=== PATIENT | male | born 1980 | race Caucasian/White ===

== ENCOUNTER 2016-10-23 16:34 | Emergency (ER) | payer SELFPAY ==
[2016-10-23] MEDS ORDERED: HYDR1CRE TOPICAL (17:14)
[2016-10-23] MEDS ORDERED: PERM5CRE TOPICAL (17:14)
[2016-10-23] MEDS ORDERED: DEXAMETHASONE SOD PHOS 4 MG/ML VIAL IM ONE (17:15)
--- NOTE | 2016-10-23 17:28 | PD ---
HPI Chief Complaint: Skin Problem Time Seen by Provider: 17:05 Travel History International Travel<30 days: No Contact w/Intl Traveler<30days: No Traveled to known affect area: No History of Present Illness HPI 35-year-old male presents to the emergency room for evaluation of itchy rash to his bilateral upper and lower extremities for the past week. Patient states it started on his arms and has since spread. States it is extremely itchy, especially at night. He has been taking Benadryl without significant relief in symptoms. Denies any new food, environmental, or medication exposures. States he does not remember getting bitten by any bugs. Denies being outside. No one else in the house has similar symptoms. PFSH Past Medical History Medical History: Denies Significant Hx Diminished Hearing: No Tetanus Vaccination: < 5 Years Influenza Vaccination: No Past Surgical History Surgical History: No Previous Surgery Social History Alcohol Use: Yes (occassional) Tobacco Use: Yes (1/2 ppd) Substance Use: No Allergies-Medications (Allergen,Severity, Reaction): Coded Allergies: No Known Allergies (Unverified , 10/23/16) Reported Meds & Prescriptions Reported Meds & Active Scripts Active Permethrin Topical 5% (Permethrin) 5% Cream 1 Applic TOPICAL ONCE Hydrocortisone Topical 1% Cream 1 Applic TOPICAL BID Review of Systems Except as stated in HPI: all other systems reviewed are Neg Physical Exam Narrative GENERAL: Well-nourished, well-developed male in no acute distress. Afebrile. Ambulatory. SKIN: Focused skin assessment warm/dry. Multiple excoriations to bilateral upper and lower extremities. There are several 1 cm raised, skin colored, maculopapular lesions to bilateral arms and a few on the back. No evidence of infection. HEAD: Normocephalic. EYES: No scleral icterus. No injection or drainage. NECK: Supple, trachea midline. No JVD or lymphadenopathy. CARDIOVASCULAR: Regular rate and rhythm without murmurs, gallops, or rubs. RESPIRATORY: Breath sounds equal bilaterally. No accessory muscle use. No crackles, rales, wheezes, or rhonchi. PSYCHIATRIC: No delusional thought processes. No hallucinations. Data Data Orders Dexamethasone Inj (Decadron Inj) (10/23/16 17:15) MDM Medical Decision Making Medical Screen Exam Complete: Yes Emergency Medical Condition: Yes Medical Record Reviewed: Yes Differential Diagnosis Allergic reaction, scabies, urticaria Narrative Course 35-year-old male presents to the emergency room for evaluation of itchy rash for the past one week. Patient denies any new environmental, food, or medication exposures. Physical exam reveals multiple excoriations to bilateral upper and lower extremities. There are several 1 cm raised, skin colored, maculopapular lesions to bilateral arms and a few on the back. No evidence of infection. He was given Decadron in the emergency room. History and physical exam are consistent with allergic reaction rather than scabies but patient will be treated empirically for both with hydrocortisone cream and scabies cream. Patient discharged with instructions to follow-up with a cow washer or return for worsening symptoms. He understands and agrees to plan. Diagnosis Primary Impression: Urticarial rash Referrals: [facility] Inspector Primary Care Physician Patient Instructions: Acute Rash (ED), General Instructions Additional Instructions: Rest and drink plenty of fluids. Apply creams as directed. Follow up with a primary care physician. Return to emergency room for worsening symptoms, as discussed. Med/Other Pt SpecificInfo: Prescription(s) given Scripts Permethrin Topical 5% 5% Cream1 Applic TOPICAL ONCE #1 TUBE Ref 0 Prov:Tigist Smyth DO 10/23/16 Hydrocortisone Topical 1% Cream1 Applic TOPICAL BID #1 TUBE Ref 0 Prov:Tigist Smyth DO 10/23/16 Disposition: 01 DISCHARGE HOME Condition: Stable Maddie Sheppard Oct 23, 2016 17:28
== END 2016-10-23 18:09 | disposition home or self-care (01) ==
LOC: PHEFT 16:34
DX: L50.8 Other urticaria (principal); L29.9 Pruritus, unspecified; F17.200 Nicotine dependence, unspecified, uncomplicated
CPT/HCPCS: 96372; 99284; J1100